=== PATIENT | male | born 1990 | race African-American/Black ===

== ENCOUNTER 2018-10-05 07:29 | Emergency (ER) | payer OTHER ==
[~2018-10-05] VITALS: Ht 180.3 cm; Wt 88.6 kg
[2018-10-05 07:29] VITALS: BP 150/83
[2018-10-05] MEDS ORDERED: BENZ200C70 PO (08:13)
[2018-10-05] MEDS ORDERED: IBUP-1022 PO (08:13)
[2018-10-05] MEDS ORDERED: AFRI0.058 (08:13)
== END 2018-10-05 08:20 | disposition home or self-care (01) ==
LOC: M ED 07:29
DX: J06.9 Acute upper respiratory infection, unspecified (principal)

== ENCOUNTER 2019-01-27 19:32 | Emergency (ER) | payer OTHER ==
[~2019-01-27] VITALS: Ht 180.3 cm; Wt 95.0 kg
[~2019-01-27 19:32] MED LIST: AFRI0.058; BENZ200C70 PO; IBUP-1022 PO
[2019-01-27 19:33] VITALS: BP 143/87
== END 2019-01-27 20:37 | disposition home or self-care (01) ==
LOC: M ED 19:32
DX: L03.211 Cellulitis of face (principal); F17.200 Nicotine dependence, unspecified, uncomplicated